=== PATIENT | male | born 1950 | race Caucasian/White ===

== ENCOUNTER 2020-01-15 13:38 | Observation (INO) | payer MEDICARE, BC ==
--- OUTSIDE RECORDS SUMMARY | 2020-01-15 14:11 | XMS REPORT | Continuity of Care Document ---
:1950 External Reference #:[id number] Author Name Roma Brown MD (transmitted by agent of provider Amina Finnegan) Address [address] [place] [address] Care Team Providers Name Role Phone Ko Cosby MD - Urology Care Team Information [employer] [phone] Problems Description No Information Available Social History Type Date Description Comments Sex Unknown Tobacco Use Start: Unknown current cigarette smoker Cigarette Use Pack Years - 30 Tobacco Use Start: Unknown Current Cigarette Smoker 1 Pack Daily Smoking Status Reviewed: 01/15/20 Current Cigarette Smoker 1 Pack Daily ETOH Use Currently consumes Pt states he is an alcohol alcholic. ETOH Use consumes 5-6 beers per day ETOH Use Consumes 4 quarts of liquor per week Tobacco Use Start: Unknown Patient is a current smoker, smokes every day Exercise Exercises regularly daily 10-15 minutes Type/Frequency of weighted hula-hoops Allergies, Adverse Reactions, Alerts Description No Known Drug Allergies Medications Active Medications SIG Qnty Indications Ordering Date Provider Chantix Starting use as directed on 1pack F17.210 [facility], 08/21/2019 Month Nixon package Roma Lacy MD 0.5mg X 11 & 1 mg X 42 Tablets Chantix Continuing use as directed on 56tabs F17.210 [facility], 08/21/2019 Month Nixon package Roma Lacy MD 1mg Tablets Aspirin Ec Low 1 by mouth every day 30tabs I65.23 [facility], 11/07/2018 Dose Roma Lacy MD 81mg Tablets DR Luzitromaynor Inject 380 MG 1units F10.24 [facility], 05/24/2018 380mg Intramuscularly Every Roma Lacy MD Suspension Rec Month Thiamine HCL 1 by mouth every day 30tabs F10.24 [facility], 09/21/2017 Roma Lacy MD 100mg Tablets Vitamin D3 1 by mouth every day 30tabs E55.9 [facility], 09/21/2017 Roma Lacy MD 5000Unit Tablets B-12 Compliance q week x 4 then q mos D51.9 [facility], 09/07/2017 Injection Roma Lacy MD 1000mcg/ML Kit Sulfamethoxazole/T 1 by mouth qd R35.0 Unknown rimethoprim DS 800-160mg Tablets Medications Administered in Office Medication SIG Qnty Indications Ordering Provider Date B-12 Injection Roma Brown MD 08/21/2019 Injection Injection Naltrexone, Depot Roma Brown MD 08/21/2019 Form 1 MG Injection B-12 Injection Nurses Schedule Simin 05/15/2019 Injection Injection Naltrexone, Depot Nurses Schedule Simin 05/15/2019 Form 1 MG Injection B-12 Injection Roma Brown MD 04/12/2019 Injection Injection Naltrexone, Depot Roma Brown MD 04/12/2019 Form 1 MG Injection Injection Naltrexone, Depot Nurses Schedule Simin 03/03/2019 Form 1 MG Injection B-12 Injection Roma Brown MD 01/13/2019 Injection Injection Naltrexone, Depot Roma Brown MD 01/13/2019 Form 1 MG Injection B-12 Injection Roma Brown MD 10/03/2018 Injection Injection Naltrexone, Depot Roma Brown MD 10/03/2018 Form 1 MG Injection B-12 Injection Roma Brown MD 08/23/2018 Injection Injection Naltrexone, Depot Blaine Coreas MD 08/23/2018 Form 1 MG Injection B-12 Injection Nurses Schedule Simin 06/28/2018 Injection Injection Naltrexone, Depot Nurses Schedule Simin 06/28/2018 Form 1 MG Injection B-12 Injection Roma Brown MD 05/24/2018 Injection B-12 Injection Nurses Schedule Simin 04/08/2018 Injection B-12 Injection Freddy Pérez PA 02/14/2018 Injection B-12 Injection Nurses Schedule Simin 01/11/2018 Injection B-12 Injection Roma Brown MD 12/10/2017 Injection B-12 Injection Nurses Schedule Simin 10/19/2017 Injection B-12 Injection Nurses Schedule Simin 10/13/2017 Injection B-12 Injection Roma Brown MD 09/21/2017 Injection B-12 Injection Nurses Schedule Simin 09/15/2017 Injection Immunizations CPT Code Status Date Vaccine Lot # [id number] Given 08/21/2019 Influenza Vac, Quadrivalent, Split, 0.5mL Dosage, [id number] Im Use [id number] Given 01/13/2019 Pneumococcal 23 Immunization Adult Or [id number] Immunosuppressed Patient 59609 Given 10/03/2018 Influenza Vac, Quadrivalent, Split, 0.5mL Dosage, [id number] Im Use 37937 Given 09/03/2017 Influenza Vac, Quadrivalent, Split, 0.5mL Dosage, [id number] Im Use 25176 Given 09/03/2017 Prevnar 13 Pneumococal Conjugate Vaccine [id number] Given 10/12/2008 Afluria Or Fluvirin Flu Vac Intramuscular Vital Signs Date Vital Result Comment 01/15/2020 10:38am Weight 174.00 lb Heart Rate 64 /min BP Systolic 120 mmHg BP Diastolic 66 mmHg Height 70 inches 5'10" BMI (Body Mass Index) 25.0 kg/m2 08/21/2019 10:17am Weight 170.00 lb Heart Rate 76 /min BP Systolic 120 mmHg BP Diastolic 62 mmHg Height 70 inches 5'10" BMI (Body Mass Index) 24.4 kg/m2 Results Test Acquired Date Facility Test Result H/L Range Note CBC with Auto Diff-fcmg 08/21/2019 [facility] W[facility] 9.8 K/uL 4.1-11.0 1 RBC 3.91 M/uL Low 4.60-6.10 Hemoglobin 14.2 gm/dL 13.5-18.0 Hematocrit 40.8 % Low 41.0-53.0 MCV 104.5 fL High 80.0-97.0 MCH 36.3 pg High 27.0-32.0 MCHC 34.7 g/dL 32.0-36.0 RDW 15.5 % High 11.5-14.5 PLT Count 213 K/ul 140-400 MPV 10.1 FL 7.1-10.7 Neutrophil 63.7 % 35.0-75.0 Lymphocyte 25.2 % 16.0-52.0 Monocyte 8.3 % 2.0-10.0 Eosinophil 2.2 % 0.0-5.0 Basophil 0.6 % 0.0-4.0 Abs Neutrophils 6.3 K/uL 2.1-8.0 Abs Lymphocytes 2.5 K/uL 0.8-5.5 Abs Monocytes 0.8 K/uL 0.1-1.0 Abs Eosinophils 0.2 K/uL 0.0-0.5 Abs Basophils 0.1 K/uL 0.0-0.3 Hepatic Panel (LFT) 08/21/2019 [facility] Total Protein 7.0 g/dL 6.0-8.0 Albumin 4.1 g/dL 3.6-4.9 Total Bilirubin 0.8 mg/dL 0.1-1.3 Direct Bilirubin 0.1 mg/dL 0.0-0.4 Alkaline Phosphatase 42 U/L 24-140 Alt 13 U/L 3-42 Ast 20 U/L 8-42 Laboratory test finding 08/21/2019 Flex Vitamin B12 >1500 pg/mL High 180-914 Vitamin D 25 Hydroxy 98 ng/mL 30-100 2 PSA Total And Free -RL 08/21/2019 Flex PSA Total 3.0 ng/mL (0.0-4.0) PSA Free 0.5 ng/mL PSA % Free 17 % 3 1 This sample is drawn by:[facility]. 2 Clinical Guidelines for recommended serum 25(OH)Vitamin D Deficient at less than 20 ng/mL Insufficient at 20 to <30 ng/mL Sufficient at 30-100 ng/mL Toxicity at greater than 100 ng/mL 3 % FREE PSA PROBABILITY OF CANCER 0 - 10% 56% 10 - 15% 28% 15 - 20% 20% 20 - 25% 16% GREATER THAN 25% 8% THE FREE PSA PERCENTAGE IS AN AID IN DISTINGUISHING PROSTATE CANCER FROM BENIGN PROSTATIC CONDITIONS IN MEN AGE 50 AND OLDER WITH A TOTAL PSA BETWEEN 3 AND 10 NG/ML AND NEGATIVE DIGITAL RECTAL EXAMINATION FINDINGS. PROSTATIC BIOPSY IS REQUIRED FOR THE DIAGNOSIS OF CANCER. (See: YONI 1998; 279: 9172-1213) METHOD USED TO ASSAY BOTH FREE PSA AND TOTAL PSA IS [facility] LOCI CHEMILUMINESCENT IMMUNOASSAY (CALIBRATION TRACEABLE TO WHO , 1998, 96/8). RESULTS SHOULD NOT BE INTERPRETED ABSOLUTE EVIDENCE FOR THE PRESENCE OR ABSENCE OF MALIGNANT DISEASE. VALUES OBTAINED WITH DIFFERENT ASSAY METHODS OR KITS CANNOT BE USED INTERCHANGEABLY. 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 Z86.73 Prsnl hx of TIA (TIA), and cereb infrc w/o resid deficits D51.9 Vitamin B12 deficiency anemia, unspecified E78.2 Mixed hyperlipidemia R97.20 Elevated prostate specific antigen [PSA] E55.9 Vitamin D deficiency, unspecified G60.8 Other hereditary and idiopathic neuropathies M25.512 Pain in LEFT shoulder R05 Cough F17.210 Nicotine dependence, cigarettes, uncomplicated Z12.2 Encntr screen for malignant neoplasm of respiratory organs H61.23 Impacted cerumen, bilateral Assessments Date Code Description Provider 01/15/2020 Z00.01 Encounter for general adult medical Roma Brown MD examination with abnormal findings 01/15/2020 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 Brown MD disorder 01/15/2020 E55.9 Vitamin D deficiency, unspecified Roma Brown MD 01/15/2020 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), and cerebral infarction without residual deficits 01/15/2020 D51.9 Vitamin B12 deficiency anemia, unspecified Roma Brown MD 01/15/2020 E78.2 Mixed hyperlipidemia Roma Brown MD 01/15/2020 R97.20 Elevated prostate specific antigen [PSA] Roma Brown MD 01/15/2020 G60.8 Other hereditary and idiopathic neuropathies Roma Brown MD 01/15/2020 Z12.2 Encounter for screening for malignant Roma Brown MD neoplasm of respiratory organs 01/15/2020 F17.210 Nicotine dependence, cigarettes, Roma Brown MD uncomplicated 01/15/2020 Z13.31 Encounter for screening for depression Roma Brown MD 01/15/2020 Z13.9 Encounter for screening, unspecified Roma Brown MD 01/15/2020 R05 Cough Roma Brown MD 01/15/2020 R94.31 Abnormal electrocardiogram [ECG] [EKG] Roma Brown MD 01/15/2020 Z68.25 Body mass index (BMI) 25.0-25.9, adult Roma Brown MD 08/21/2019 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 Brown MD disorder 08/21/2019 E55.9 Vitamin D deficiency, unspecified [facility] 08/21/2019 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), and cerebral infarction without residual deficits 08/21/2019 D51.9 Vitamin B12 deficiency anemia, unspecified Roma Brown MD 08/21/2019 E78.2 Mixed hyperlipidemia Roma Brown MD 08/21/2019 R97.20 Elevated prostate specific antigen [PSA] Roma Brown MD 08/21/2019 E55.9 Vitamin D deficiency, unspecified Roma Brown MD 08/21/2019 G60.8 Other hereditary and idiopathic neuropathies Roma Brown MD 08/21/2019 M25.512 Pain in LEFT shoulder Roma Brown MD 08/21/2019 R05 Cough Roma Brown MD 08/21/2019 F17.210 Nicotine dependence, cigarettes, Roma Brown MD uncomplicated 08/21/2019 Z12.2 Encounter for screening for malignant Roma Brown MD neoplasm of respiratory organs 08/21/2019 H61.23 Impacted cerumen, bilateral Roma Brown MD 08/21/2019 D51.9 Vitamin B12 deficiency anemia, unspecified [facility] Plan of Treatment 01/15/2020 - Roma Brown MDZ00.01 Encounter for general adult medical examination with abnormal klczjestW97.24 Alcohol dependence with alcohol- induced mood oltixjnxJ67.9 Vitamin D deficiency, ancbsbvqcgqQ84.73 Personal history of transient ischemic attack (TIA), and cerebral infarction without begtwfxkhzwxplecT65.9 Vitamin B12 deficiency anemia, dymhcfdsrbfX71.2 Mixed hcnvbkolzvbrghZ43.20 Elevated prostate specific antigen [PSA]G60.8 Other hereditary and idiopathic ffpufzgmbrngO40.2 Encounter for screening for malignant neoplasm of respiratory froqxnF17.210 Nicotine dependence, cigarettes , cyjagdwgacwhpI74.31 Encounter for screening for sbjpntctjwD90.9 Encounter for screening, quxtqkiryfpE10 DfsscK26.31 Abnormal electrocardiogram [ECG] [EKG] Follow up:2-3 wksZ68.25 Body mass index (BMI) 25.0-25.9, adult Functional Status Description No Information Available Mental Status Description No Information Available Referrals Description No Information Available
--- NOTE | 2020-01-15 14:30 | ED ---
HPI Chest Pain - HPI Summary HPI Summary: 69 year old M presenting to [facility] accompanied by female subgrade tester complains of CP that radiates up to his throat and jaw and settles in his left arm/elbow that has been going on intermittently for months. His PCP told him to come to [facility] during a routine check up for this reason. He states he usually feel fine after waking up following an episode and that episodes occur around once a week. His last episode was a couple days ago. He also states that he gets out of breath more easily but that it could possibly be due to age. Patient denies any swelling in the legs. The patient rates the pain 1/10 in severity. Symptoms aggravated by nothing. Symptoms alleviated by laying down. - History of Current Complaint Chief Complaint: EDChestPainROMI Time Seen by Provider: 01/15/20 14:22 Hx Obtained From: Patient Onset/Duration: Started Weeks Ago - months, Still Present Timing: Intermittent - around once a week last episode was a few days ago Pain Intensity: 1 Pain Scale Used: 0-10 Numeric Chest Pain Location: Diffuse - goes up to throat and jaw and comes down to left arm/elbow Chest Pain Radiates To:: Arm - left arm/elbow, Jaw - and throat Aggravating Factor(s): Nothing Alleviating Factor(s): Rest Associated Signs and Symptoms: Positive: Shortness of Breath - experiences SOB more easily during activites but believes it could possibly be due to age. Negative: Calf Pain/Swelling - Allergy/Home Medications Allergies/Adverse Reactions: Allergies Allergy/AdvReac Type Severity Reaction Status Date / Time No Known Allergies Allergy Verified 01/15/20 13:49 Home Medications: Home Medications Cholecalciferol CAP/TAB(NF) [Vitamin D3 CAP/TAB (NF)] 5,000 unit PO DAILY [History Confirmed 01/15/20] Cyanocobalamin TAB* [Vitamin B12 TAB*] 500 mcg PO DAILY 01/15/20 [History Confirmed 01/15/20] PMH/Surg Hx/FS Hx/Imm Hx Endocrine/Hematology History: Denies: Hx Diabetes, Hx Thyroid Disease Cardiovascular History: Denies: Hx Hypertension, Hx Pacemaker/ICD Respiratory History: Denies: Hx Asthma, Hx Chronic Obstructive Pulmonary Disease (COPD) GI History: Denies: Hx Ulcer History: Denies: Hx Renal Disease Musculoskeletal History: Reports: Hx Tendonitis - HX OF LEFT ELBOW Sensory History: Reports: Hx Contacts or Glasses - GLASSES Denies: Hx Hearing Aid Opthamlomology History: Reports: Hx Contacts or Glasses - GLASSES Psychiatric History: Denies: Hx Panic Disorder - Surgical History Surgery Procedure, Year, and Place: Right side inguinal hernia repair. LEFT SIDE. COLONOSCOPIES X 2. LEFT HAND ORIF WITH PLATES IN FINGERS Hx Anesthesia Reactions: No Infectious Disease History: No Infectious Disease History: Denies: Hx Hepatitis, Hx Human Immunodeficiency Virus (HIV), Traveled Outside the [place] in Last 30 Days - Family History Known Family History: Negative: Cardiac Disease, Hypertension, Diabetes - Social History Substance Use Type: Reports: None Review of Systems Positive: Chest Pain - radiates up to throat and jaw and comes down to left arm/ elbow Positive: Shortness Of Breath - SOB more easily possibly due to age Negative: Edema - none in legs All Other Systems Reviewed And Are Negative: Yes Physical Exam - Summary Physical Exam Summary: Appearance: The patient is well-nourished in no acute distress and in no acute pain. Skin: The skin is warm and dry, and skin color reflects adequate perfusion. HEENT: The head is normocephalic and atraumatic. The pupils are equal and reactive. The conjunctivae are clear and without drainage. Nares are patent and without drainage. Mouth reveals moist mucous membranes, and the throat is without erythema and exudate. The external ears are intact. The ear canals are patent and without drainage. The tympanic membranes are intact. Neck: The neck is supple with full range of motion and non-tender. There are no carotid bruits. There is no neck vein distension. Respiratory: Chest is non-tender. Lungs are clear to auscultation and breath sounds are symmetrical and equal. Cardiovascular: Heart is regular rate and rhythm. There is no murmur or rub auscultated. There is no peripheral edema and pulses are symmetrical and equal. Abdomen: The abdomen is soft and non-tender. There are normal bowel sounds heard in all four quadrants and there is no organomegaly palpated. Musculoskeletal: There is no back tenderness noted. Extremities are non-tender with full range of motion. There is good capillary refill. There is no peripheral edema or calf tenderness elicited. Neurological: Patient is alert and oriented to person, place and time. The patient has symmetrical motor strength in all four extremities. Cranial nerves are grossly intact. Deep tendon reflexes are symmetrical and equal in all four extremities. Psychiatric: The patient has an appropriate affect and does not exhibit any anxiety or depression. Triage Information Reviewed: Yes Vital Signs On Initial Exam: Initial Vitals Temp Pulse Resp BP Pulse Ox 97.5 F 67 19 130/72 99 01/15/20 13:44 01/15/20 13:44 01/15/20 13:44 01/15/20 13:44 01/15/20 13:44 Vital Signs Reviewed: Yes Procedures - Sedation Patient Received Moderate/Deep Sedation with Procedure: No Diagnostics - Vital Signs Vital Signs Temp Pulse Resp BP Pulse Ox 01/15/20 13:44 97.5 F 67 19 130/72 99 - Laboratory Result Diagrams: 01/15/20 14:39 01/15/20 14:39 Lab Statement: Any lab studies that have been ordered have been reviewed, and results considered in the medical decision making process. - Radiology CXR Radiology Interpretation Completed By: Radiologist Summary of Radiographic Findings: IMPRESSION: No acute cardiopulmonary process by radiograph. has reviewed this report. - CT CTA Chest/Thorax CT Interpretation Completed By: Radiologist Summary of CT Findings: IMPRESSION: No evidence of PE or other significant acute chest pathology. Mild. emphysematous changes . has reviewed this report. - EKG 1352 Cardiac Rate: NL EKG Rhythm: Sinus Rhythm Summary of EKG Findings: An EKG at 1352 reveals normal sinus rhythm, nondiagnostic flipped T waves inferiorly, and PVCs at a rate of 62 bpm. has reviewed and interpreted this EKG. Chest Pain Course/Dx - Course Course Of Treatment: Mr. Villagomez came in pain-free but with a good story for unstable angina. His Heqart Score was a 4 or a 5 and I asked the hospitalist to see him. - Diagnoses Provider Diagnoses: Unstable angina - Provider Notifications Discussed Care Of Patient With: Ramya Holliday - admit Time Discussed With Above Provider: 19:00 Instructed by Provider To: Admit As Inpatient Discharge ED - Sign-Out/Discharge Documenting (check all that apply): Patient Departure - admit - Discharge Plan Condition: Stable Disposition: ADMITTED TO [facility] - Billing Disposition and Condition Condition: STABLE Disposition: Admitted to [facility] - Attestation Statements Document Initiated by Scribe: Yes Documenting Scribe: Garrick Castano Provider For Whom Scribe is Documenting (Include Credential): Saul Chavez MD Scribe Attestation: I, Garrick Castano, scribed for Saul Chavez MD on 01/16/20 at 1312. Scribe Documentation Reviewed: Yes Provider Attestation: The documentation as recorded by the Garrick herring accurately reflects the service I personally performed and the decisions made by me, Saul Chavez MD Status of Scribe Document: Viewed
[2020-01-15 14:49] LABS: Hematocrit 37 % (42-52); Hemoglobin 12.7 g/dL (14.0-18.0); Mean Corpuscular HGB Conc 34 g/dL (31-36); Mean Corpuscular Hemoglobin 35 pg (27-31); Mean Corpuscular Volume 103 fL (80-94); Mean Platelet Volume 9.8 fL (7.4-10.4); Platelet Count 186 10^3/uL (150-450); Red Blood Count 3.63 10^6 /uL (4.18-5.48); Red Cell Distribution Width 16 % (10-15); White Blood Count 7.9 10^3/uL (3.5-10.8)
[2020-01-15 15:00] LABS: INR 1.1 (0.82-1.09)
[2020-01-15 15:02] LABS: CO2 Carbon Dioxide 26 mmol/L (22-32); Chloride 103 mmol/L (101-111); Potassium 4.4 mmol/L (3.5-5.0); Sodium 135 mmol/L (135-145)
[2020-01-15 15:03] LABS: Albumin 4.3 g/dL (3.2-5.2); Anion Gap 6 mmol/L (2-11); Calcium 10.1 mg/dL (8.6-10.3)
[2020-01-15 15:08] LABS: ALT 11 U/L (7-52); AST 17 U/L (13-39); Albumin/Globulin Ratio 1.4 (1-3); Alkaline Phosphatase 37 U/L (34-104); BUN/Creatinine Ratio 13.5 (8-20); Blood Urea Nitrogen 14 mg/dL (6-24); EGFR African American 85.7 (>60); EGFR Non-African American 70.8 (>60); Globulin 3.1 g/dL (2-4); Glucose 107 mg/dL (70-100); Total Protein 7.4 g/dL (6.4-8.9)
[2020-01-15 15:21] LABS: Troponin I 0.08 ng/mL (<0.03)
[2020-01-15 15:50] LABS: ABS Basophils 0.1 10^3/ul (0-0.2); ABS Eosinophils 0.3 10^3/ul (0-0.6); ABS Lymphocytes 2.8 10^3/ul (1.0-4.8); ABS Monocytes 0.6 10^3/ul (0-0.8); ABS Neutrophils 4.1 10^3/ul (1.5-7.7); Eosinophil % 4.1 %; Lymphocyte % 35.4 %
[2020-01-15] MEDS ORDERED: Iohexol 350* (CONTRAST) 500 ML MDV IV ONE (16:58)
[2020-01-15 18:26] LABS: Troponin I 0.08 ng/mL (<0.03)
[2020-01-15] MEDS ORDERED: Atorvastatin* 80 MG TAB PO ONE (20:36)
[2020-01-15 20:55] LABS: % Iron Saturation 21 % (15-55); Iron 67 ug/dL (50-212); Total Iron Binding Capacity 315 mcg/dL (250-450); Transferrin 225 mg/dL (203-362)
[2020-01-15] MEDS ORDERED: Enoxaparin(*) 40 MG/0.4 ML SYR SUBCUT SCH (21:00)
[2020-01-15] MEDS: Aspirin 81 mg CHEW TAB* 81 MG TAB.CHEW PO SCH (21:13)
[2020-01-15] MEDS: Metoprolol Tartrate TAB* 25 MG PO SCH (21:13)
[2020-01-15 21:15] LABS: Ferritin 265.7 ng/mL (24-336)
[2020-01-15 21:32] LABS: Troponin I 0.08 ng/mL (<0.03)
[2020-01-15 22:12] LABS: Cholesterol 203 mg/dL; HDL Cholesterol 47.9 mg/dL; LDL Cholesterol 136 mg/dL; Triglycerides 96 mg/dL
--- NOTE | 2020-01-15 22:19 | HP ---
HISTORY AND PHYSICAL: DATE OF ADMISSION: 01/15/20 ADMITTING PROVIDER: Kale Araujo MD PRIMARY CARE PROVIDER: Dr. Roma Brown. CHIEF COMPLAINT: Sent from PCP's office for EKG changes and history of intermittent chest pain and dyspnea on exertion. HISTORY OF PRESENT ILLNESS: Cirilo Villagomez is a 69-year-old male with past medical history of longtime smoker, alcoholism, vitamin D deficiency. He saw Dr. Roma Brown, his PCP, for routine physical today and his EKG showed new T-wave inversions in III and aVF compared to December 2014. He also related to her that he gets these intermittent episodes of upper chest tightness that radiated causing pain in the Flip's apple, jaw and then down the left arm into the left elbow, which will get very painful. These episodes lasted about 30 minutes at a time, last was a week ago and had been happening for a few months. He denies that they are exertional, they seem random and not associated with food. He denies shortness of breath at rest, but does get dyspnea on exertion especially while walking up a slope. He seems to handle stairs alright. About 8 months ago, he did fall, contact of his left elbow to a firm Ashly countertop and he has evidence of 2 scars and a small lump in that area. He did get an echocardiogram about [address] Brown's office and he had an exercise stress test approximately 15 years ago in [place]. He does not exercise especially during the winter months. He has never had pulmonary function test or been diagnosed with COPD. He had a colonoscopy about 1 year ago that was reportedly normal. PAST MEDICAL HISTORY: Current and long-term smoker, alcoholism but has recently cut back from hard liquor as drinking to just beers. MEDICATIONS: Include: 1. Thiamine 100 mg p.o. daily. 2. Vitamin B12 of 500 mcg p.o. daily. 3. Cholecalciferol 5000 units p.o. daily. ALLERGIES: No known drug allergies. FAMILY MEDICAL HISTORY: His father of lung cancer metastatic to the brain at age 70. Mother of an acute cerebral hemorrhage in her early 80s. Brother around age 60 of colon cancer. Another living brother, age 76, also recent survivor of colon cancer. He has 3 healthy daughters. SOCIAL HISTORY: The patient is a longtime smoker, approximately half a pack between ages 16 and 32 and currently about 3 quarters of pack between age 52 and 69, so about 20 pack years total. He has been a long time alcoholic since the age of 17, but he has been trying to avoid having hard liquor in the house ( his general choice had been vodka) for the last month and is currently drinking about 5 beers a day. He denies ever having any seizure activity. Denies ever having liver complications. He denies drug use. 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 He lives with his , Jerri. He desires to be a full code. Jerri is his medical surrogate. REVIEW OF SYSTEMS: A complete 14-point review of systems is negative except as per HPI. He denies any fevers, chills, nausea, vomiting, abdominal pain, diarrhea, constipation, headache, nocturia, orthopnea, paroxysmal and nocturnal dyspnea, palpitations. He does have an occasional wheeze that resolves with coughing. PHYSICAL EXAMINATION GENERAL APPEARANCE: No acute distress. VITAL SIGNS: Temperature 97.5, pulse rate 67, respiratory rate 19, oxygen sat 99%, blood pressure 130/72. HEENT: Normocephalic, atraumatic. Pupils equal, round, and reactive to light. Extraocular movements intact. No scleral icterus. NECK: Supple. LUNGS: Clear to auscultation bilaterally with no wheezing, rales, or rhonchi. CARDIOVASCULAR: Regular rate and rhythm. No murmurs, rubs, or gallops. ABDOMEN: Soft, nontender, nondistended. No rebound, no guarding. No Smalls's sign. EXTREMITIES: Warm and well perfused. No peripheral edema. NEUROLOGIC: Cranial nerves II through XII are intact. Direct Marketing Manager strength intact. Moving all extremities. SKIN: No lesions, no rashes except for some 2 short linear scars at the left elbow with approximately 1.5 cm bump near one of them. No erythema or warmth. DIAGNOSTIC STUDIES/LAB DATA: White count 7.9, hemoglobin 12.7, hematocrit 37, platelets 186. INR 1.10. Sodium 135, potassium 4.4, chloride 103, carbon dioxide 26, BUN 14, creatinine 1.04, glucose 107, lactic acid 1.1, calcium 10.1. Total bili 0.4, AST 17, ALT 11, alk phos 37. Troponin 0.08 and repeat also was 0.08. BNP 130, albumin 4.3. Chest x-ray, no acute cardiopulmonary process. CTA of the chest showed some mild emphysema, no pulmonary embolism. EKG from 1352 demonstrated T-wave inversions in III and aVF, poor R-wave progression, no ST elevations or depressions, normal axis, normal intervals, heart rate 62, QTc is 407. Similar EKG sent from Dr. Brown's office at 10:57 a.m. with T-wave inversions in III and aVF. ASSESSMENT AND PLAN: 1. Cirilo Villagomez is a 69-year-old male with longtime smoking history and alcoholism, presenting with EKG changes and intermittent chest pains radiating to the jaw and left arm, though none in the last week. He has had elevated troponins here and he also had a recent echo approximately 3 months ago, unknown details, but he was not told of any concern. He is being admitted for acute coronary syndrome rule out given the elevated troponins and EKG changes. We will trend troponins, I will get another one now at 9 p.m., first 2 have been flat. Planning for a nuclear stress test at the morning, n.p.o. at midnight. Starting him on metoprolol tartrate 12.5 mg p.o. b.i.d., give aspirin 81 mg now and daily and Lipitor 80 mg now. Add on the A1c and lipid panel. Request records from Dr. Brown's office about lipids, A1c and echo results. Keep him on telemetry. 2. Anemia with some macrocytosis and history of B12 deficiency and elevated RDW at 16, MCV is 103. Add on iron, TIBC and ferritin, folic acid and B12 level. Denies any blood in the bowel movements. He has had a recent colonoscopy about a year ago. 3. Alcoholism. Put him on WAM precautions. Denies having any history of seizures. Continue his thiamine. 4. Smoking history. He does not want a nicotine patch. 5. FEN: He can eat a heart healthy diet, until midnight placed n.p.o. 6. Code status: He is a full code. Medical surrogate is his , Jerri. 7. DVT prophylaxis: Start him on Lovenox 40 mg daily. He is at moderate risk per the DVT risk calculator. [id number]/[facility] #: [id number] [facility]ITAL[facility]
[2020-01-16] MEDS: Metoprolol Tartrate TAB* 25 MG PO SCH (07:57)
[2020-01-16] MEDS: Aspirin 81 mg CHEW TAB* 81 MG TAB.CHEW PO SCH (08:10)
[2020-01-16] MEDS ORDERED: Aminophylline IV* 25 MG/ML 10 ML VIAL ONE (09:15)
[2020-01-16] MEDS ORDERED: Regadenoson* 0.4 MG/5 ML SYRINGE ONE (09:15)
[2020-01-16] MEDS ORDERED: Cholecalciferol TAB* 1000 UNITS PO SCH (11:00)
[2020-01-16] MEDS ORDERED: Cyanocobalamin TAB* 500 MCG PO SCH (11:00)
[2020-01-16] MEDS ORDERED: Thiamine TAB* 100 MG TAB PO SCH (11:00)
--- NOTE | 2020-01-16 11:52 | ECHO ---
*[facility]* [place] [address] Fax #: [phone] Transthoracic Echocardiogram Patient: Cirilo Villagomez : 1950 Study Date: 01/16/2020 Age: 69 Gender: M HR: 69 bpm Height: 70 in /177.8 cm BSA: 1.93 m^2 Weight: 164.7 lb /74.8 kg BMI: 23.7 kg/m^2 *Fire Captain: * Stephanie Carroll [facility] *Referring Physician: * Kale Araujo *Reading Physician: * John Helton MD Indications: Abnormal EKG. History: Risk factors: ETOH. Current tobacco use. Conclusions Summary: - Left ventricle: Systolic function is normal. The estimated ejection fraction is 55-60%. Hypokinesis of the basal-midinferolateral myocardium. - Right ventricle: Systolic function is normal. - Mitral valve: There is trace regurgitation. - Aortic valve: There is no evidence of stenosis. - Pulmonary arteries: Systolic pressure can not be accurately estimated. - Study data: No prior study is available for comparison. Study data: Transthoracic echocardiogram. Procedure: Transthoracic echocardiography was performed. Image quality was good. Complete 2D, spectral Doppler, and color flow Doppler. Location: Procedure room. Patient status: Inpatient. Patient room number: 442 02. No prior study is available for comparison. Rhythm: Normal sinus rhythm with PVC's. Findings Left ventricle: The cavity size is normal. Wall thickness is mildly increased. Systolic function is normal. The estimated ejection fraction is 55-60%. Regional wall motion abnormalities: Hypokinesis of the basal-midinferolateral myocardium. There is no consistent Doppler evidence of clinically significant diastolic dysfunction. Right ventricle: The cavity size is normal. Systolic function is normal. Left atrium: The atrium is normal in size. Right atrium: The atrium is normal in size. Mitral valve: The leaflets are normal thickness. There is no evidence of stenosis. There is trace regurgitation. Aortic valve: The valve is trileaflet. The leaflets are normal thickness. There is no evidence of stenosis. There is no significant regurgitation. Tricuspid valve: The leaflets are normal thickness. There is no evidence of stenosis. There is no significant regurgitation. Pulmonic valve: The leaflets are normal thickness. There is no evidence of stenosis. There is no significant regurgitation. Aorta: The aortic root appears normal. The aortic arch appears normal. Pericardium: There is no significant pericardial effusion. Pulmonary arteries: Systolic pressure can not be accurately estimated. Systemic veins: Inferior vena cava: The vessel is normal in size. There is (>= 50%) respiratory change in the IVC dimension. Measurements Left ventricle Value Ref Aortic valve Value Ref KOMAL, LAX 5.2 cm 4.2 - 5.8 Yazmin diam, ED 2.0 cm ---- ESD, LAX 3.8 cm 2.5 - 4.0 Yazmin diam/bsa, ED 1.0 cm/m^2 ---- FS, LAX 26 % 25 - 43 Peak v, S 1.4 m/sec ---- PW, ED, LAX 0.8 cm 0.6 - 1.0 VTI, S 32.4 cm ---- E', lat yazmin, TDI (L) 8.0 cm/sec >=10.0 E/e', lat yazmin, 8 Mitral valve Value Re f TDI Peak E 0.62 m/sec ---- E', med yazmin, TDI (L) 4.0 cm/sec >=7.0 Peak A 0.89 m/sec ---- E/e', med yazmin, 15 Decel time 287 ms -- -- TDI Peak E/A ratio 0.69 ---- E', avg, TDI 6.0 cm/sec E/e', avg, TDI 10 <=14 Pulmonic valve Value Ref Peak v, S 0.8 m/sec ---- LVOT Value Ref Peak grad, S 2.6 mm Hg ---- Peak stacia, S 1 m/sec VTI, S 23.7 cm Aortic root Value Ref Peak grad, S 4 mm Hg Root diam 3.3 cm <4.1 Mean grad, S 2 mm Hg Ascending aorta Value Ref Ventricular septum Value Ref AAo AP diam, S 2.9 cm ---- IVS, ED (H) 1.1 cm 0.6 - 1.0 AAo AP diam/bsa, S 1.5 cm/m^2 ---- Right ventricle Value Ref Aortic arch Value Ref KOMAL, LAX 2.9 cm Arch diam 2.4 cm ---- KOMAL major ax, A4C (L) 3.5 cm 5.9 - 8.3 Decending aorta Value Ref Left atrium Value Ref Mike peak stacia 0.56 m/sec ---- AP dim, ES 4.00 cm 3.00 - 4.00 Inferior vena cava Value Ref ML dim, A4C 4.3 cm Diam 1.3 cm ---- SI dim, A4C 5.7 cm Vol/bsa, ES, 2-p 30 ml/m^2 16 - 34 Pulmonary veins Value Ref Peak v, S 0.61 m/sec ---- Right atrium Value Ref Peak v, D 0.44 m/sec ---- SI dim, ES 4.2 cm 3.4 - 5.3 Peak S/D ratio 1.39 ---- ML dim, ES, A4C 3.8 cm 2.6 - 4.4 A rev duration 128 ms ---- SI dim, ES, A4C 4.2 cm 3.4 - 5.3 SI dim/bsa, ES, 2.2 cm/m^2 1.8 - 3.0 A4C Estimated RAP 8 mm Hg Legend: (L) and (H) taylor values outside specified reference range. Prepared and electronically signed by John Helton MD 01/16/2020 11:52
[2020-01-16 15:39] VITALS: BP 94/54
[2020-01-16] MEDS ORDERED: Atorvastatin* 80 MG TAB PO SCH (17:00)
--- NOTE | 2020-01-16 17:50 | CONS ---
CC: Dr. Roma Brown * CARDIOLOGY CONSULTATION: DATE OF CONSULT: 01/16/20 INDICATION FOR CONSULTATION: Chest pain, abnormal stress test. HISTORY OF PRESENT ILLNESS: The patient is a 69-year-old gentleman with a history of smoking, who came to the emergency room at the request of Dr. Brown after having a physical yesterday. The patient showed up for his physical and had an EKG, which showed new T-wave inversions in lead III and aVF. In speaking with the patient, in general he denies any cardiac symptoms; however , on further investigation, he does report episodes of chest pain that occur every 3 to 4 weeks. He describes it as a symptom, usually when he is lying in bed he notices a pain over his left shoulder and then it radiates up into his jaw and down into his elbow. He says the pain goes to about a 5/10 discomfort. He said as he sits on the side of his bed and dangles his arms eventually the pain will go away, usually last about half an hour. Again, it occurs only once every 3 to 4 weeks. He said in the interim he has no symptoms whatsoever. In general, he is mildly active. He does walk around his property and take care of his own house and again during those times he has no chest pain, no shortness of breath, no palpitations; no lightheadedness, dizziness, or syncope. PAST MEDICAL HISTORY: Significant for tobacco use, alcoholism. OUTPATIENT MEDICATIONS: 1. Thiamine 100 mg a day. 2. Calciferol units a day. ALLERGIES: No known drug allergies. FAMILY HISTORY: Father of lung cancer. Mother of cerebral hemorrhage. SOCIAL HISTORY: Positive for tobacco use. Positive for alcohol use. He is currently not working. He denies any illicit drug use. He lives with his . REVIEW OF SYSTEMS: Negative for fevers or chills. Negative for changes in bowel or bladder habits. Negative for change in weight. Other 12-point review was unremarkable. PHYSICAL EXAM: Height is 5 feet 10 inches, weight is 169 pounds, temperature 98.5, blood pressure is 100/56, respiratory rate is 20, oxygen saturation 98% on room air, heart rate is 58. The patient is awake, alert, and oriented. He moves all 4 extremities equally. Sclerae anicteric. Carotids are 2+ without bruits. JVD is normal. Thyroid is normal. Cardiac Exam: S1, S2 without any murmurs, rubs, or gallops. PMI is normal. Lungs are clear to auscultation. There is no dullness to percussion. Abdomen is soft, nontender, nondistended with normoactive bowel sounds. Extremities show no edema. He has 2+ pulses throughout. The patient is awake, alert, and oriented. DIAGNOSTIC STUDIES/LAB DATA: His initial EKG shows normal sinus rhythm with T- wave flattening in lead III and aVF with 1 PVC. Laboratory studies: CBC within normal limits. Chemistries within normal limits. BUN and creatinine are normal. AST and ALT are normal. His initial troponin level was 0.08. His troponin has been the same. Throughout his stay, he had 3 troponins, all of which were 0.08. Total cholesterol 203, LDL cholesterol 136, HDL cholesterol 47. BNP is 130 and just outside the normal range. Hemoglobin A1c is 5.1. The patient did undergo a chemical nuclear stress test today. I did personally review the images. His nuclear images show a fixed inferior wall defect that is likely due to attenuation. On the raw images, there is a high bowel loop that obscures the inferior wall. His LV function is calculated at 38%; however , on visual inspection of the gated images, his wall motion abnormality is normal, even his inferior wall is normal. The patient did have an echocardiogram, which showed normal LV size and systolic function. There is minimal hypokinesis of the mid inferolateral wall. Valvular studies are normal. IMPRESSION AND PLAN: This is a 69-year-old gentleman who is admitted to the hospital after seeing that he has new T-wave inversions. The patient does describe episodes of chest pain as described above. They are very infrequent. They are not associated with exertion and they are random in their presentation. Overall, I think the patient's cardiac evaluation is unremarkable. I am not convinced that the patient has a large old inferior wall myocardial infarction. It may be small at best, but there is attenuation on his nuclear images that make interpretation more difficult. At this point, I am not convinced that the patient needs a cardiac catheterization. The patient's blood pressure is normal. My recommendation is that the patient strongly consider statin therapy and aspirin a day. I will see the patient in followup in 6 months. [id number]/[facility] #: [id number] MTDD
--- NOTE | 2020-01-16 21:51 | DS ---
DISCHARGE SUMMARY: DATE OF ADMISSION: DATE OF DISCHARGE: ADDENDUM: MEDICATIONS: 1. Cyanocobalamin 500 mcg p.o. daily. 2. Cholecalciferol 5000 units p.o. daily. CONDITION UPON DISCHARGE: Stable. DISPOSITION: To home. TIME SPENT: Time spent on the patient is about 60 minutes with 30 of that spent face to face. [id number]/[facility] #: [id number] MTDD
--- NOTE | 2020-01-16 22:07 | DS ---
ADDENDUM NOW INCLUDED ON THIS REPORT CC: Dr. Brown * DISCHARGE SUMMARY: DATE OF ADMISSION: 01/15/20 DATE OF DISCHARGE: 01/16/20 PROVIDER: Lola Oviedo NP ATTENDING PHYSICIAN: Dr. Adkins.* (DICTATED BY LOLA OVIEDO NP) PRIMARY CARE PHYSICIAN: Dr. Brown. CONSULTING PHYSICIAN: Dr. Helton. PRIMARY DIAGNOSIS: Chest pain without evidence of acute coronary syndrome. PROCEDURES: Nuclear cardiac stress test on 01/16/20 showed that he was at intermediate risk. The impression was decreased ejection fraction, large fixed defect of the inferior wall which may reflect previous infarct or soft tissue attenuation artifact. No definite reversible perfusion defect. DIAGNOSTIC STUDIES: Chest x-ray showed no acute cardiopulmonary process. Transthoracic echocardiogram showed an ejection fraction of 55% to 60% with hypokinesis of the basal mid inferolateral myocardium, trace mitral valve regurgitation. CTA of the chest showed no evidence of PE or other significant acute chest pathology. Mild emphysematous changes. HISTORY OF PRESENT ILLNESS: This is a 69-year-old male with a past medical history significant for smoking, EtOH abuse, and vitamin D deficiency. He came to the emergency room on 01/15/20 by the urging of his PCP Dr. Brown as she had seen him for a routine physical and an EKG showed new T-wave inversion in leads III and aVF when compared to a previous EKG in December of 2014. He also stated that he had been having intermittent episodes of what he described as not exactly chest pain, but radiating warmth and tightness and discomfort through his chest, jaw, and down his left arm settling into his elbow, which happened in 3 to 4 weeks, that would resolve quickly and was not provoked by exertion. He stated that those episodes were random and neither were they associated with food. He denied shortness of breath at rest. He can get dyspneic on exertion, particularly walking up a slope though he can tolerate stairs well. In the emergency room, imaging was taken, blood was drawn. His trops were 0.08 and remained at that level for 3 draws in a row without any further episodes of chest pain or discomfort. Hemoglobin A1c and lipids were checked. His hemoglobin A1c came back normal at 5.1; however, his LDL cholesterol was elevated and was given a dose of atorvastatin in the emergency room as well as a baby aspirin and was started on metoprolol. Today, on the day of discharge he received a transthoracic echocardiogram and a nuclear stress test. I consulted Dr. Helton because I noted the discrepancy in the ejection fraction between the echocardiogram, which stated that his ejection fraction was 50% to 55% and the nuclear stress test which read 39%. After speaking with Dr. Helton in person, he felt that it was likely somewhere in the middle. The nuclear stress test had shown a fixed area defect in the inferior wall; however, Dr. Helton was not impressed by it stating that the he was on the raw images still able to see some degree of movement and did not feel that the patient had had an acute AL and instead recommended that he be medically optimized and then would be ready for discharge. His recommendation was to continue atorvastatin and aspirin. He did not feel that the patient needed metoprolol. This recommendation came after the discharge orders had already been written. So, initially the patient was sent home on metoprolol succinate, but I later called him at his house and instructed him to not take it and this was especially in consideration that ever since his admission, his blood pressure had remained within good control and at no point had been tachycardic. REVIEW OF SYSTEMS: All pertinent positives and negatives were included in the HPI. PHYSICAL EXAMINATION: Vital Signs: 98.6 Fahrenheit, 62 pulse, 16 respirations , 96% oxygen on room air, 94/54 blood pressure. General: This is a well- developed older gentleman seen sitting up in bed, no acute distress noted. HEENT: Conjunctivae pink and moist. PERRLA, EOMs intact. Oropharynx clear. Mucous membranes moist. Neck is supple. Cardiac: S1, S2 present, heart rate regular. No murmurs, gallops, or rubs appreciated. No carotid bruits. No JVD noted. Respiratory: Lungs sounds clear throughout bilaterally on room air. No accessory muscle use noted. Abdomen: Soft, nontender, and nondistended with positive bowel sounds x4. Musculoskeletal: No clubbing or cyanosis of the digits. Capillary refill less than 3 seconds. Neurological: Sensation intact to light touch. No focal deficits appreciated. Psych: He is alert and oriented x4. Thought content organized. DISCHARGE PLAN: He is to go home on a heart-healthy diet of low-salt and low- fat. He can be activity as tolerated, though I did instruct him to come back to the emergency room should he develop sudden chest pain or the similar sensation that he had had previous to discharge with exertion. PLAN FOR EACH CONDITION: 1. Chest pain. Both an NSTEMI and STEMI were ruled out. He despite his stress test showing an intermediate risk with fixed defect, Dr. Helton did not feel that the patient required cardiac catheterization at this time though did want to see him in 4 to 6 weeks' time as a followup. Because of his LDL cholesterol being elevated, he was started on high intensity atorvastatin with instructions that he should contact his PCP should he develop any muscle aches and he is to take a baby aspirin every day. Even though he was sent home with a prescription for metoprolol, he was later contacted to abstain from taking that as his blood pressure was normal and he was not tachycardic at any point during his stay. 2. EtOH abuse. He is to continue his folic acid and thiamine. 3. Vitamin D deficiency. He is to continue his cholecalciferol. MEDICATIONS: New Medications upon discharge: 1. Aspirin 81 mg p.o. daily. 2. Atorvastatin 80 mg p.o. daily. Medications to continue upon discharge: 1. Thiamine 100 mg p.o. daily. 2. Vitamin B12 of 500 mcg p.o. daily. CONTINUATION ADDENDUM: MEDICATIONS: 1. Cyanocobalamin 500 mcg p.o. daily. 2. Cholecalciferol 5000 units p.o. daily. CONDITION UPON DISCHARGE: Stable. DISPOSITION: To home. TIME SPENT: Time spent on the patient is about 60 minutes with 30 of that spent face to face. LOLA OVIEDO, [place] [id number]/[facility] #: [id number] Laura [id number]/[facility] #: [id number] CHRISTINA
== END 2020-01-16 17:05 | disposition home or self-care (01) ==
LOC: ED 13:38 → MEDTELE 20:12 → ED 21:54
PROVIDERS: ADMIT Internal Medicine; ATTEND Internal Medicine
DX: R07.9 Chest pain, unspecified (principal); I20.0 Unstable angina; R06.02 Shortness of breath; F17.210 Nicotine dependence, cigarettes, uncomplicated; F10.10 Alcohol abuse, uncomplicated; E55.9 Vitamin D deficiency, unspecified; Z79.899 Other long term (current) drug therapy
CPT/HCPCS: 36415; 71046; 71275; 78452; 80053; 80061; 82728; 83036; 83540; 83550; 83605; 83880; 84484; 85025; 85379; 85610; 93005; 93017; 93306; 96372; 99285; A9270-GY; A9502; G0378; J0280; J1650; J2785; Q9967